=== PATIENT | male | born 1995 | race Two or more races ===

== ENCOUNTER 2025-07-21 23:08 | Emergency (ER) | payer OTHER ==
[~2025-07-21] VITALS: Ht 180.3 cm; Wt 103.7 kg
[2025-07-22] MEDS ORDERED: ACET500T58 PO (00:25)
[2025-07-22] MEDS ORDERED: CIPR500T4 PO (00:25)
[2025-07-22] MEDS: TETANUS-DIPTH-ACEL PERTUSSIS 0.5ML SYR Tdap IM ONE (00:26)
[2025-07-22] MEDS: cefTRIAXone SOD 1,000 MG VL IM ONE (00:27)
--- NOTE | 2025-07-22 00:27 | ED.PDOC ---
Foreign Body HPI Comments 29-year-old male presents to ER with complaints of foreign body to right great toe x 30 minutes. Patient states that he got a used fishing hook stuck in his right great toe while he was working on his fishing pole inside his garage 30 minutes prior to arrival to ER. He reports 8/10 pain to right great toe and is unsure when his last tetanus shot was. Reports that he did cut off part of the fishing hook prior to arrival to ER. Denies numbness/tingling or any further symptoms/complaints Chief Complaint: Foreign Body Time Seen by MD: 23:25 Primary Care Provider: UNKNOWN History of Present Illness: Nurses Notes, Medications, Allergies Allergies: Coded Allergies: NO KNOWN ALLERGIES (Unverified , 07/21/25) Home Meds Active Scripts Ciprofloxacin Hcl (Ciprofloxacin Hcl) 500 Mg Tab, 1 TAB PO BID for 7 Days, #14 TAB 0 Refills Prov:GREGOR CLEMENT 07/22/25 Acetaminophen (Acetaminophen) 500 Mg Tab, 500 MG PO Q4HPRN, #30 TAB 0 Refills Prov:GREGOR CLEMENT 07/22/25 Information Source: Patient Mode of Arrival: Ambulatory Past Medical History PAST MEDICAL HISTORY: Denies Surgical History: Denies all surgeries Family History Family History: Unknown Social History Smoker: Non-Smoker Alcohol: Denies ETOH Use Drugs: Denies Drug Use Lives In: Home Constitutional: denies: chills, diaphoresis, fatigue, fever, malaise, sweats, weakness, others EENTM: denies: blurred vision, double vision, ear bleeding, ear discharge, ear drainage, ear pain, ear ringing, eye pain, eye redness, hearing loss, mouth pain, mouth swelling, nasal discharge, nose bleeding, nose congestion, nose pain, photophobia, tearing, throat pain, throat swelling, voice changes, others Respiratory: denies: cough, hemoptysis, orthopnea, SOB at rest, shortness of breath, SOB with excertion, stridor, wheezing, others Cardiovascular: denies: chest pain, dizzy spells, diaphoresis, Dyspnea on exertion, edema, irregular heart beat, left arm pain, lightheadedness, palpitations, PND, syncope, others Gastrointestinal: denies: abdomen distended, abdominal pain, blood streaked bowels, constipated, diarrhea, dysphagia, difficulty swallowing, hematemesis, melena, nausea, poor appetite, poor fluid intake, rectal bleeding, rectal pain, vomiting, others Genitourinary: denies: burning, dysuria, flank pain, frequency, hematuria, incontinence, penile discharge, penile sore, pain, testicle pain, testicle swelling, urgency, others Neurological: denies: dizziness, fainting, headache, left sided numbness, left sided weakness, numbness, paresthesia, pre-existing deficit, right sided numbness, right sided weakness, seizure, speech problems, tingling, tremors, weakness, others Musculoskeletal: denies: back pain, gout, joint pain, joint swelling, muscle pain, muscle stiffness, neck pain, others Integumetry: reports: others (As stated in HPI) Allergic/Immunocompromised: denies: Difficulty Healing, Frequent Infections, Hives, Itching, others Hematologic/Lymphatic: denies: anemia, blood clots, easy bleeding, easy b ruising, swollen glands, others Endocrine: denies: excessive hunger, excessive sweating, excessive thirst, excessive urination, flushing, intolerance to cold, intolerance to heat, unexplained weight gain, unexplained weight loss, others Psychiatric: denies: anxiety, bipolar disorder, depression, hopeless, panic disorder, schizophrenia, sleepless, suicidal, others Physical Exam General Appearance: No Apparent Distress HEENT: PERRL/EOMI Neck: Full Range of Motion, Non-Tender, Normal Respiratory: Chest Non-Tender, Lungs Clear, No Accessory Muscle Use, No Respiratory Distress, Normal Breath Sounds Cardiovascular: No Murmur, No Gallop, Regular Rate/Rhythm Breast Exam: Deferred Gastrointestinal: Non Tender, No Pulsatile Mass, Soft Genitalia: Deferred Pelvic: Deferred Rectal: Deferred Extremities: Normal capillary refill, Normal range of motion Musculoskeletal : Extremity Location: Great Toe (Partial metallic fishing hook noted imbedded in lateral aspect of right great toe. No bleeding/erythema/bony tenderness/nailbed injury appreciated. Patient able to move all toes of right foot. Steady gait noted. Pulses intact) Neurologic: Alert, No Motor Deficits, Normal Affect, Normal Mood, No Sensory Deficits Cerebellar Function: Normal Reflexes: Normal Skin: Dry, Normal Color, Warm Peripheral Pulses: 2+ dorsalis pedis (R), 2+ dorsalis pedis (L), 2+ Radial (R), 2+ Radial (L), 2+ Brachial (R), 2+ Brachial (L) Lymphatic: No Adenopathy Was a procedure done? Was a procedure done?: Yes Sedation Sedation?: No Foreign Body Removal Foreign body in: Other (Fishing hook foreign body in right great toe) Anesthetic: Lidocaine (%) Prep: Betadine, Irrigation Procedure: Identified, Removed (Upon waiting for anesthetic to kick in, patient fully pulled out the fishing hook foreign body using his fingers. No bleeding or other FB appreciated post FB removal) Informed consent obtained: Yes Risks/benefits/alt described: Yes FB Differential Dx Differential Diagnosis: Abrasion, Laceration, Perforation X-Ray, Labs, Meds, VS Vital Signs Date Time Temp Pulse Resp B/P (MAP) Pulse Ox O2 Delivery O2 Flow Rate FiO2 07/22/25 00:45 92 18 98 Room Air* 0 21 07/22/25 00:44 98.8 92 18 148/81 (103) 95 98.8 07/21/25 23:08 97.3 103 18 141/84 93 97.3 Current Medications Medications (Trade) Dose Ordered Sig/Kate Route Start Time Stop Time Status Last Admin Diphtheria/ Tetanus/Acell Pertussis (Boostrix T-Dap) 0.5 ml ONCE ONCE IM 07/22/25 00:30 07/22/25 00:31 DC 07/22/25 00:26 Ceftriaxone Sodium (Rocephin) 1,000 mg ONCE ONCE IM 07/22/25 00:30 07/22/25 00:31 DC 07/22/25 00:27 Lidocaine HCl (Xylocaine 1%) ONCE ONCE ID 07/22/25 00:30 07/22/25 00:31 DC 07/22/25 00:35 Tdap 0.5 mL IM ordered Rocephin 1 g IM ordered Patient neurovascularly intact and asymptomatic prior to discharge Advised to follow up with PCP in 1-2 days Patient verbalized understanding and agreeable with current plan of care Advised to return to ER immediately if symptoms worsen Time of 1ST Reevaluation: 00:22 Reevaluation 1ST: N/A Patient Education/Counseling: Diagnosis, Treatment, Prognosis, Need For Follow Up Family Education/Counseling: Diagnosis, Treatment, Prognosis, Need For Follow Up Departure 1 Departure Time of Disposition: 00:54 Impression: Primary Impression: Fishing hook foreign body Qualified Codes: W45.8XXA - Other foreign body or object entering through skin, initial encounter Disposition: HOME / SELF CARE / HOMELESS Condition: Stable e-Prescriptions Ciprofloxacin Hcl (Ciprofloxacin Hcl) 500 Mg Tab 1 TAB PO BID for 7 Days, #14 TAB 0 Refills Prov: GREGOR CLEMENT 07/22/25 Acetaminophen (Acetaminophen) 500 Mg Tab 500 MG PO Q4HPRN, #30 TAB 0 Refills Prov: GREGOR CLEMENT 07/22/25 Discharged With: Significant Other Critical Care Note Critical Care Time?: No Stability Stability form required: No Heart Score Heart Score: Heart Score Response (Comments) Value History N/A 0 EKG N/A 0 Age N/A 0 Risk Factors N/A 0 Troponin N/A 0 Total 0 GREGOR CLEMENT Jul 22, 2025 00:27
[2025-07-22] MEDS: LIDOCAINE 1% HCL (LOCAL ANESTH.) INJ 20ML MDV ID ONE (00:35)
[2025-07-22 00:44] VITALS: BP 148/81; TEMP 98.8
[2025-07-22 00:45] VITALS: PULSE 92; RESP 18; O2SAT 98
== END 2025-07-22 01:02 | disposition home or self-care (01) ==
LOC: ER 23:08
DX: S90.454A Superficial foreign body, right lesser toe(s), initial encounter (principal); X58.XXXA Exposure to other specified factors, initial encounter; Y93.89 Activity, other specified; Y92.89 Other specified places as the place of occurrence of the external cause; Y99.8 Other external cause status
CPT/HCPCS: 90471; 90715; 96372; 99284; J0696; J2003